=== PATIENT | female | born 1980 | race Caucasian/White ===

== ENCOUNTER 2018-12-07 22:37 | Emergency (ER) | payer MEDICAID ==
[~2018-12-07] VITALS: Ht 180.3 cm; Wt 80.5 kg
[2018-12-07 22:39] VITALS: BP 141/94
--- NOTE | 2018-12-07 23:03 | NUR ---
edpa at bedside for assessment.
[2018-12-07] MEDS ORDERED: LIDOCAINE-MPF 1%, 5ML ONE (23:05)
--- NOTE | 2018-12-07 23:26 | NUR ---
I&D completed by NATASHA Velazquez, wound dressed by NATASHA.
--- NOTE | 2018-12-07 23:49 | NUR ---
pt given dc instructions and script, educated regarding bactrim and keflex rx. pt educated regarding f/u instructions. pt a&o, resps even and unlabored, nadn at dc. pt amb to dc desk with steady gait accompanied by friend.
[2018-12-08] MEDS ORDERED: LIDOCAINE-MPF 1%, 5ML INFIL ONE
== END 2018-12-07 23:50 | disposition home or self-care (01) ==
LOC: ED 23:20
DX: L02.414 Cutaneous abscess of left upper limb (principal)
CPT/HCPCS: 10060; 99283

== ENCOUNTER 2018-12-09 21:06 | Emergency (ER) | payer MEDICAID ==
[~2018-12-09] VITALS: Ht 180.3 cm; Wt 78.7 kg
[2018-12-09] MEDS ORDERED: CEPH-368 PO (21:15)
[2018-12-09] MEDS ORDERED: SEPTRA DS (21:15)
--- NOTE | 2018-12-09 22:38 | NUR ---
CELLULITIS OUTLINED WITH SURGICAL PEN. POC DISCUSSED. AWAITING DC PAPERWORK AT THIS TIME. PT DENIES FURTHER NEEDS.
[2018-12-09 23:18] VITALS: BP 124/74
== END 2018-12-09 23:19 | disposition home or self-care (01) ==
LOC: ED 21:33
DX: L03.114 Cellulitis of left upper limb (principal); F17.200 Nicotine dependence, unspecified, uncomplicated
CPT/HCPCS: 99283

== ENCOUNTER 2019-01-20 09:57 | Emergency (ER) | payer MEDICAID ==
[~2019-01-20] VITALS: Ht 180.3 cm; Wt 79.2 kg
[~2019-01-20 09:57] MED LIST: CEPH-368 PO; SEPTRA DS
[2019-01-20 10:18] VITALS: BP 135/93
--- NOTE | 2019-01-20 10:39 | NUR ---
to tr 01. oriented to room. gown given
--- NOTE | 2019-01-20 11:31 | NUR ---
PT DISCHARGED WITH DISCHARGE INSTRUCTIONS AND FOLLOW UP INSTRUCTIONS.
== END 2019-01-20 11:34 | disposition home or self-care (01) ==
LOC: ED 11:20
DX: J06.9 Acute upper respiratory infection, unspecified (principal); F17.200 Nicotine dependence, unspecified, uncomplicated; Z90.710 Acquired absence of both cervix and uterus
CPT/HCPCS: 71046; 99283

== ENCOUNTER 2019-06-12 23:17 | Emergency (ER) | payer MEDICAID ==
[~2019-06-12] VITALS: Ht 180.3 cm; Wt 82.5 kg
[~2019-06-12 23:17] MED LIST changes: +FERR-51 PO
[2019-06-12 23:19] VITALS: BP 144/82
[2019-06-12] MEDS ORDERED: LIDOCAINE-MPF 1%, 5ML ONE (23:58)
[2019-06-13] MEDS ORDERED: LIDOCAINE-MPF 1%, 5ML INFIL ONE
--- NOTE | 2019-06-13 00:03 | NUR ---
PT. REPORTS LEFT EYE SWELLING "I WOKE UP LIKE THIS AND IT'S GETTING WORSE". PT HAS SWELLING AND REDNESS TO LEFT UPPER CHEEK TO UNDER LEFT EYE
--- NOTE | 2019-06-13 01:05 | NUR ---
Patient/Caregiver given discharge instructions and they have confirmed that they understand the instructions. Patient ambulatory with steady gait.
== END 2019-06-13 01:07 | disposition home or self-care (01) ==
LOC: ED 06-13 01:01
DX: L02.01 Cutaneous abscess of face (principal); L03.211 Cellulitis of face; R51 Headache; F15.10 Other stimulant abuse, uncomplicated; F17.210 Nicotine dependence, cigarettes, uncomplicated
CPT/HCPCS: 10060; 99283

== ENCOUNTER 2019-09-24 12:09 | Emergency (ER) | payer MEDICAID ==
[~2019-09-24] VITALS: Ht 180.3 cm; Wt 79.0 kg
[2019-09-24] MEDS ORDERED: LIDOCAINE-MPF 1%, 5ML ONE ×2 (12:58→13:33)
[2019-09-24] MEDS ORDERED: LIDOCAINE-MPF 1%, 5ML INFIL ONE (13:00)
[2019-09-24] MEDS ORDERED: CEFTRIAXONE 1,000 MG IM ONE (13:30)
[2019-09-24] MEDS ORDERED: HYDROcodone/APAP 5/325 TABLET PO ONE (13:30)
[2019-09-24] MEDS ORDERED: HYDROcodone/APAP 5/325 TABLET ONE (13:33)
[2019-09-24] MEDS ORDERED: CEFTRIAXONE 1,000 MG ONE (13:34)
[2019-09-24 13:49] VITALS: BP 138/90
--- NOTE | 2019-09-24 13:50 | NUR ---
PT MEDICATED PER EMAR, TOLERATED WELL. PT GIVEN DC INSTRUCTIONS AND SCRIPT, EDUCATED REGARDING DC RX. PT AMBULATORY TO DC WITH STEADY GAIT, ALL QUESTIONS ANSWERED.
== END 2019-09-24 13:51 | disposition home or self-care (01) ==
LOC: ED 13:40
DX: L02.415 Cutaneous abscess of right lower limb (principal); E11.9 Type 2 diabetes mellitus without complications; F17.200 Nicotine dependence, unspecified, uncomplicated; Z90.710 Acquired absence of both cervix and uterus
CPT/HCPCS: 10060; 96372; 99283; J0696

== ENCOUNTER 2019-11-04 18:23 | Emergency (ER) | payer MEDICAID, OTHER ==
[~2019-11-04] VITALS: Ht 180.3 cm; Wt 81.1 kg
[2019-11-04 18:27] VITALS: BP 154/90
--- NOTE | 2019-11-04 19:16 | NUR ---
[employer] REPRESENTATIVE: PT. TO ROOM FROM LOBBY AT THIS TIME.
--- NOTE | 2019-11-04 19:39 | NUR ---
PT UP TO RR WITH STEADY GAIT, AWAITING LAB RESULTS
[2019-11-04 19:42] LABS: BASOPHILS # (AUTO) 0.02 x10^3/uL (0-0.1); BASOPHILS % (AUTO) 0 % (0-1); EOSINOPHILS # (AUTO) 0.12 x10^3/uL (0-0.4); EOSINOPHILS % (AUTO) 1 % (1-7); LYMPHOCYTES # (AUTO) 1.76 x10^3/uL (1-3.4); LYMPHOCYTES % (AUTO) 18 % (22-44); MD NO; MEAN CORPUSCULAR HEMOGLOBIN 24.4 pg (27.0-34.8); MEAN CORPUSCULAR VOLUME 76.3 fL (80-100); MONOCYTES # (AUTO) 0.56 x10^3/uL (0.2-0.8); MONOCYTES % (AUTO) 6 % (2-9); NEUTROPHILS % (AUTO) 75 % (42-75); PLATELET COUNT 280 x10^3/uL (130-400); RED BLOOD COUNT 5.13 x10^6/uL (3.82-5.3); RED CELL DISTRIBUTION WIDTH 13.9 % (9.6-15.2)
[2019-11-04 19:51] LABS: ANION GAP 8 mmol/L (5-15); CALCIUM 8.5 mg/dL (8.5-10.1); CHLORIDE 105 mmol/L (98-107); CREATININE 0.87 mg/dL (0.55-1.02)
[2019-11-04] MEDS ORDERED: DIPH,PERTUSS(ACELL),TET VAC/PF 0.5 ML IM-VACC ONE ×2 (20:08→20:30)
--- NOTE | 2019-11-04 20:17 | NUR ---
PT MEDICATED PER MAR
== END 2019-11-04 20:27 | disposition home or self-care (01) ==
LOC: ED 18:59
DX: L03.113 Cellulitis of right upper limb (principal); L03.123 Acute lymphangitis of right upper limb; F15.10 Other stimulant abuse, uncomplicated; F17.210 Nicotine dependence, cigarettes, uncomplicated; E11.9 Type 2 diabetes mellitus without complications
CPT/HCPCS: 36415; 80048; 85025; 90471; 90715; 99283